=== PATIENT | male | born 1970 | race Caucasian/White ===

== ENCOUNTER 2019-12-16 21:36 | Emergency (ER) | payer BC ==
[2019-12-16] MEDS ORDERED: Ketorolac 60 MG/2 ML SDV IM ONE (21:46)
--- NOTE | 2019-12-16 21:56 | EDM.PDOC ---
ED HPI GENERAL MEDICAL PROBLEM - General Chief Complaint: General Stated Complaint: INJURED RIBS Time Seen by Provider: 12/16/19 21:41 Source of Information: Reports: Patient History Limitations: Reports: No Limitations - History of Present Illness INITIAL COMMENTS - FREE TEXT/NARRATIVE: 49 YO WM presents to ER complaining of right sided rib pain after a slip and fall 3 days ago. Pt reports he was walking up the stairs of his trailer and he fell landing on his right side. Pt reports he was trying to "tough it out" but he was too uncomfortable tonight prompting ER evaluation. Pt denies shortness of breath, hemoptysis, or substernal chest pain. No fever/chills, no cough/ congestion. Pt is alert and oriented and denies any head injury. Onset Date: 12/13/19 Duration: Day(s): (3) Location: Reports: Chest Quality: Reports: Ache Severity: Moderate Improves with: Reports: Rest Worsens with: Reports: Breathing, Movement Associated Symptoms: Reports: No Other Symptoms, Chest Pain. 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 - Related Data Allergies Allergy/AdvReac Type Severity Reaction Status Date / Time procaine HCl [From Novocain] Allergy Cannot Verified 12/16/19 22:05 Remember Home Meds: Home Meds FLUoxetine HCl [Fluoxetine HCl] 40 mg PO DAILY 03/04/14 [History] Metoprolol Succinate [Toprol XL] 200 mg PO DAILY 03/04/14 [History] Hydrocodone/Acetaminophen [Hydrocodone-Acetamin 10-325 mg] 1 each PO Q6HR PRN # 10 tablet 12/16/19 [Rx] Ibuprofen [Motrin] 600 mg PO Q6H #20 tab 12/16/19 [Rx] ED ROS GENERAL - Review of Systems Review Of Systems: See Below Constitutional: Reports: No Symptoms HEENT: Reports: No Symptoms Respiratory: Reports: No Symptoms Cardiovascular: Reports: Chest Pain Endocrine: Reports: No Symptoms GI/Abdominal: Reports: No Symptoms : Reports: No Symptoms Musculoskeletal: Reports: Other (right sided rib pain) Skin: Reports: No Symptoms Neurological: Reports: No Symptoms Psychiatric: Reports: No Symptoms Hematologic/Lymphatic: Reports: No Symptoms Immunologic: Reports: No Symptoms ED EXAM, GENERAL - Physical Exam Exam: See Below Exam Limited By: No Limitations General Appearance: Alert, WD/WN, No Apparent Distress Head: Atraumatic, Normocephalic Neck: Normal Inspection, Supple, Non-Tender, Full Range of Motion Respiratory/Chest: No Respiratory Distress, Lungs Clear, Normal Breath Sounds, No Accessory Muscle Use, Other (right sided rib pain) Cardiovascular: Normal Peripheral Pulses, Regular Rate, Rhythm, No Edema, No Gallop, No JVD, No Murmur, No Rub GI/Abdominal: Normal Bowel Sounds, Soft, Non-Tender, No Organomegaly, No Distention, No Abnormal Bruit, No Mass Back Exam: Normal Inspection, Full Range of Motion, NT Extremities: Normal Inspection, Normal Range of Motion, Non-Tender, Normal Capillary Refill, No Pedal Edema Neurological: Alert, Oriented, CN II-XII Intact, Normal Cognition, Normal Gait, Normal Reflexes, No Motor/Sensory Deficits Psychiatric: Normal Affect, Normal Mood Skin Exam: Warm, Dry, Intact, Normal Color, No Rash Lymphatic: No Adenopathy Course - Vital Signs Last Recorded V/S: Last Vital Signs Temp 36.3 C 12/16/19 21:50 Pulse 78 12/16/19 21:50 Resp 20 12/16/19 21:50 BP 155/83 H 12/16/19 21:50 Pulse Ox 95 12/16/19 21:50 - Orders/Labs/Meds Orders: Active Orders 24 hr Category Date Time Status Ribs 2V w Chest Rt [CR] Stat Exams 12/16/19 21:46 Ordered Acetaminophen/HYDROcodone [[place] 325-10 MG] Med 12/16/19 22:25 Once 2 tab PO ONETIME ONE Meds: Medications Discontinued Medications Generic Name Dose Route Start Last Admin Trade Name Cornellq PRN Reason Stop Dose Admin Ketorolac Tromethamine 60 mg 12/16/19 21:46 12/16/19 22:05 Toradol IM 12/16/19 21:47 60 mg ONETIME ONE Administration - Radiology Interpretation Free Text/Narrative:: rib series- right 9th rib fracture Departure - Departure Time of Disposition: 22:27 Disposition: Home, Self-Care 01 Condition: Fair Clinical Impression: Rib fracture Qualifiers: Encounter type: initial encounter Rib fracture type: single rib Fracture type: closed Laterality: right Qualified Code(s): S22.31XA - Fracture of one rib, right side, initial encounter for closed fracture - Discharge Information Prescriptions: Hydrocodone/Acetaminophen [Hydrocodone-Acetamin 10-325 mg] 1 each PO Q6HR PRN # 10 tablet PRN Reason: Pain Ibuprofen [Motrin] 600 mg PO Q6H #20 tab Instructions: Rib Fracture, Blunt Chest Trauma Referrals: PCP,Not In Area [Primary Care Provider] - Liane Pantoja MD [Physician] - Forms: ED Department Discharge Additional Instructions: 1. discharge home 2. lortab 10/325 #10 take 1 every 6 hours as needed 3. motrin 600mg take 1 every 6 hours x 5 days 4. incentive spirometry as directed 5. follow up with PCP in no improvement next 72 hours 6. return to ER for worsening symptoms Sepsis Event Note - Focused Exam Vital Signs: Vital Signs Temp Pulse Resp BP Pulse Ox 12/16/19 21:50 36.3 C 78 20 155/83 H 95 Date Exam was Performed: 12/16/19 Time Exam was Performed: 22:25 - My Orders Last 24 Hours: My Active Orders 12/16/19 21:46 Ribs 2V w Chest Rt [CR] Stat 12/16/19 22:25 Acetaminophen/HYDROcodone [[place] 325-10 MG] 2 tab PO ONETIME ONE - Assessment/Plan Last 24 Hours: My Active Orders 12/16/19 21:46 Ribs 2V w Chest Rt [CR] Stat 12/16/19 22:25 Acetaminophen/HYDROcodone [[place] 325-10 MG] 2 tab PO ONETIME ONE Assessment:: 1. right 9th rib fracture Plan: 1. discharge home 2. lortab 10/325 #10 take 1 every 6 hours as needed 3. motrin 600mg take 1 every 6 hours x 5 days 4. incentive spirometry as directed 5. follow up with PCP in no improvement next 72 hours 6. return to ER for worsening symptoms
[2019-12-16] MEDS ORDERED: Acetaminophen/HYDROcodone 325-10 MG Tab PO ONE (22:25)
--- NOTE | 2019-12-17 07:36 | CR ---
[id number] RAD/RAD Ribs Right W PA Chest Exam: RAD Ribs Right W PA Chest Clinical Data: TRAUMA COMPARISON: NO PREVIOUS SIMILAR EXAM IS AVAILABLE FINDINGS: There is an incomplete inspiratory effort The lungs are clear. There is no pneumothorax The cardiac silhouette is mildly prominent IMPRESSION: NO ACUTE PROCESS Juancho Sanchez MD 12/17/19 0735 Thank you for allowing us to participate in the care of your patient.
== END 2019-12-16 23:00 | disposition home or self-care (01) ==
LOC: KA.ED 21:36
DX: S22.31XA Fracture of one rib, right side, initial encounter for closed fracture (principal); Z88.8 Allergy status to other drugs, medicaments and biological substances; Z79.899 Other long term (current) drug therapy; W10.9XXA Fall (on) (from) unspecified stairs and steps, initial encounter
CPT/HCPCS: 71101; 96372; 99283; A9270; J1885